=== PATIENT | male | born 1950 | race African-American/Black ===

== ENCOUNTER 2017-01-17 17:03 | Emergency (ER) | payer MEDICARE, MEDICAID ==
[~2017-01-17] VITALS: Ht 177.8 cm; Wt 68.0 kg
[~2017-01-17 17:03] MED LIST: BENADRYL25 MG ORAL; KENALOG 0.1% CR15 GM APPLIC; NKM; NORCO 5-325 TA1 EACH ORAL; PREDNISONE20 MG ORAL; UNOBMED
[2017-01-17 17:19] VITALS: BP 118/73
--- NOTE | 2017-01-17 17:31 | Emergency Room Report ---
History of Present Illness General Chief Complaint: Earache Source: Patient (Angelica Parks) Present Illness HPI 66-year-old male presents to emergency Department complaining of difficulty hearing from the left ear x2 months with inability to hear over the course of the last 2 days. Patient reports that previously he was able to tell them outside of his ear and his ear would pop and he would be up to hear better however he no longer is able to do so. Patient denies pain denies discharge denies fevers or chills patient denies ringing in the ears or headache. he denies use of Q-tips. Denies CP, Palpitations, LOC, AMS, dizziness, Changes in Vision, Sensation, paresthesias, or a sudden severe headache. (Angelica Parks) Allergies: Coded Allergies: No Known Allergies (Unverified , 11/10/13) Patient History Past Medical History: see triage record Past Surgical History: none Pertinent Family History: none Immunizations: UTD Reviewed Nursing Documentation: PMH: Agreed, PSxH: Agreed (Angelica Parks) Nursing Documentation-PMH Past Medical History: No History, Except For Hx Hypertension: Yes (Angelica Parks) Review of Systems All Other Systems: negative except mentioned in HPI (Angelica Parks) Physical Exam Vital Signs Date Time Temp Pulse Resp B/P Pulse Ox O2 Delivery O2 Flow Rate FiO2 01/17/17 17:05 98.1 91 18 122/75 98 Room Air Sp02 EP Interpretation: reviewed, normal General Appearance: no apparent distress, alert, GCS 15, non-toxic Head: normocephalic, atraumatic Eyes: bilateral eye PERRL, bilateral eye normal inspection ENT: hearing grossly normal, normal pharynx, no angioedema, normal voice, uvula midline, moist mucus membranes, other - cerumen impaction of the left ear , Right TM is WNL, there is a scab noted on the right ear canal no evidence of infeciton. Neck: full range of motion, no meningismus, no bony tend, supple/symm/no masses Respiratory: lungs clear, normal breath sounds, speaking full sentences Cardiovascular #1: regular rate, rhythm, no edema Musculoskeletal: back normal, gait/station normal, normal range of motion, non- tender Neurologic: alert, oriented x3, responsive, motor strength/tone normal, sensory intact, speech normal Psychiatric: judgement/insight normal, memory normal, mood/affect normal Skin: normal color, no rash, warm/dry, well hydrated Lymphatic: no adenopathy (Angelica Parks) Medical Decision Making [place] Attestation Dr. gastelum is my supervising Physician whom patient management has been discussed with. (Angelica Parks) Medicare Attestation The history of Donaldo Crawley has been reviewed and management options for him have been examined and discussed by Philip Winslow. I have personally examined and interviewed the patient. (PHILIP WINSLOW M.D.) Diagnostic Impression: Primary Impression: Impacted cerumen of left ear ER Course 66-year-old male presents to emergency Department complaining of difficulty hearing from the left ear x2 months with inability to hear over the course of the last 2 days. Patient reports that previously he was able to tell them outside of his ear and his ear would pop and he would be up to hear better however he no longer is able to do so. Patient denies pain denies discharge denies fevers or chills patient denies ringing in the ears or headache. he denies use of Q-tips Ddx considered but are not limited to OM, OE, mastoiditis, TM perforation, FB Vital signs: are WNL, pt. is afebrile H&PE are most consistent with Impacted cerumen of the left ear canal ORDERS: none required at this time, the diagnosis is clinical -OTOSCOPY: Impacted cerumen in the left ear canal. - Cerumen Removal: verbal consent was obtained by pt. ear curette was used to remove the cerumen from the left ear canal. Pt. tolerated well, there were no complications. re-evaluation pt. is able to hear again, there is no evidence of TM infection or rupture, canal is WNL. ED INTERVENTIONS: None required at this time. DISCHARGE: At this time pt. is stable for d/c to home. With rx for Docusate. Will provide printed patient care instructions, and any necessary prescriptions. Care plan and follow up instructions have been discussed with the patient prior to discharge. (Angelica Parks) Last Vital Signs Date Time Temp Pulse Resp B/P Pulse Ox O2 Delivery O2 Flow Rate FiO2 01/17/17 17:19 97.9 94 17 118/73 98 Room Air (Angelica Parks) Disposition: HOME, SELF-CARE Condition: Stable Scripts Carbamide Peroxide (DEBROX) 15 Ml Drops 10 DROP LEFT EAR TWICE A DAY for 4 Days, #15 ML 0 Refills Prov: Angelica Parks 01/17/17 Patient Instructions: Cerumen Impaction Additional Instructions: Take medications as directed. Follow up with PCP in 3-5 days Return sooner to ED if new symptoms occur, or current symptoms become worse. - Please note that this Emergency Department Report was dictated using [employer] tester helper technology software, occasionally this can lead to erroneous entry secondary to interpretation by the dictation equipment. Angelica Parks Jan 17, 2017 17:31 PHILIP WINSLOW M.D. Jan 28, 2017 13:57
[2017-01-17] MEDS ORDERED: DEBROX15 M1 LEFT EAR (17:32)
[2017-01-17 17:39] VITALS: BP 118/73
== END 2017-01-17 17:40 | disposition home or self-care (01) ==
LOC: EMR 17:39
DX: H61.22 Impacted cerumen, left ear (principal); I10 Essential (primary) hypertension
CPT/HCPCS: 99283

== ENCOUNTER 2017-12-03 19:34 | Emergency (ER) | payer OTHER, MEDICAID ==
[~2017-12-03] VITALS: Ht 177.8 cm; Wt 68.0 kg
[~2017-12-03 19:34] MED LIST changes: +DEBROX15 M1 LEFT EAR
[2017-12-03] MEDS ORDERED: Ketorolac 30mg Inj IM ONE (20:00)
[2017-12-03] MEDS ORDERED: Tetanus/Diptheria/Pertussis Vaccine 0.5ml Syr IM ONE (20:00)
--- NOTE | 2017-12-03 20:04 | Emergency Room Report ---
History of Present Illness General Chief Complaint: Laceration Source: Patient Present Illness HPI 67 yo male patient presents to ER complaining of laceration on right pinky finger 3 hours ago. Patient reports he was working on a chain linked fence when his ring got caught on it and he cut his little finger. Patient reports bleeding; covered finger in towel and packing tape. Patient reports pain and swelling of finger. Patient denies loss of ROM of finger. Denies use of pain medication. Patient denies fever, chest pain, SOB. Allergies: Coded Allergies: No Known Allergies (Unverified , 12/03/17) Patient History Past Medical History: see triage record Reviewed Nursing Documentation: PMH: Agreed, PSxH: Agreed Nursing Documentation-PMH Past Medical History: No History, Except For Hx Hypertension: Yes Review of Systems All Other Systems: negative except mentioned in HPI Physical Exam Vital Signs Date Time Temp Pulse Resp B/P (MAP) Pulse Ox O2 Delivery O2 Flow Rate FiO2 12/03/17 19:39 97.8 90 16 110/66 97 Room Air 97.9 Sp02 EP Interpretation: reviewed, normal General Appearance: well appearing, no apparent distress, alert, GCS 15, non- toxic Head: normocephalic, atraumatic Eyes: bilateral eye normal inspection, bilateral eye PERRL Neck: full range of motion Respiratory: normal inspection, lungs clear, normal breath sounds, no accessory muscle use, no wheezing, speaking full sentences Cardiovascular #1: regular rate, rhythm Cardiovascular #2: 2+ radial (R), 2+ radial (L) Musculoskeletal: back normal, digits/nails normal, gait/station normal, normal range of motion - MCP, PIP, DIP of left pinky finger; able to make a fist and extend finger completely without pain, other - NVI Neurologic: alert, oriented x3, responsive, motor strength/tone normal, normal gait Psychiatric: mood/affect normal Skin: laceration - right hand pinky finger, palmar side 3 cm linear laceration in u-shape at distal DIP into subcutaneous tissue, no exposed tendons, erythema , edema; <0.5cm linear laceration at tip of distal phalanx of left pinky finger on palmar side Procedures Laceration/Wound Repair Laceration/Wound Repair : Consent: Verbal Wound Location: upper extremity - right hand Wound's Depth, Shape: superficial Wound Length (cm): 3 Wound Explored: contaminated Irrigated w/ Saline (ccs): 10 Betadine Prep?: Yes Anesthesia: 1% Lidocaine Volume Anesthetic (ccs): 10 Wound Repaired With: sutures, Steri-strips, Dermabond Suture Size/Type: 5:0 Number of Sutures: 5 Layer Closure?: No Sterile Dressing Applied?: Yes Splint Applied?: Yes Patient Tolerated: Well Complications: None Medical Decision Making [place] Attestation Dr. Winslow is my supervising Physician whom patient management has been discussed with. Diagnostic Impression: Primary Impression: Laceration ER Course Pt presents to ED c/o laceration on right pinky finger. DDX considered but are not limited to laceration, abrasion, contusion, cellulitis, fracture. Ordered lidocaine, Dermabond, xray, Tdap, and pain medications. VITAL SIGNS are WNL, patient is afebrile ED INTERVENTIONS: Xray negative for fracture, tissue laceration visible, no FB noted. Wound was cleaned and irrigated using normal saline. Local block using Lidocaine 1%. Laceration repaired using sutures, steri-strips, and Dermabond. Wound cleaned and covered using sterile dressing. Finger placed in splint to prevent excessive movement and possible tear of stitches. Patient instructed on treatment plan. Patient reports understanding and agreement to treatment plan. Patient was seen and evaluated by Dr. Winslow, agrees to treatment plan. DISCHARGE: Rx provided for Keflex Rx provided for Bactrim Rx provided for Ibuprofen At this time pt is stable for d/c to home. Patient is resting comfortably, in no acute distress, nontoxic appearing. Will provide with patient care instructions and any necessary prescriptions. Patient to take medication as instructed. Care plan and follow-up instructions provided. Work note provided to patient. Patient questions asked and answered. Patient instructed to follow-up with primary care provider in 2 days for wound check and 7-10 days for removal of sutures. Patient instructed to followup with PCP to discuss further treatment plan and ability to go to work, ER precautions given. Patient instructed to return to ER immediately for any new or worsening of symptoms. Other X-Ray Diagnostic Results Other X-Ray Diagnostic Results : X-Ray ordered: Right hand # of Views/Limited Vs Complete: 3 View Indication: Pain EP Interpretation: Yes PA Xray: Interpretation reviewed, and agrees with findings. Interpretation: no dislocation, no fractures, other - tissue swelling, skin laceration, no FB Impression: Other PA Scribe Text Efren Colon PA-C Last Vital Signs Date Time Temp Pulse Resp B/P (MAP) Pulse Ox O2 Delivery O2 Flow Rate FiO2 12/03/17 19:39 97.8 90 16 110/66 97 Room Air 97.9 Disposition: HOME, SELF-CARE Condition: Stable Scripts Trimethoprim/Sulfamethoxazole 160/800* (BACTRIM DS TABLET*) 1 Each Tablet 1 TAB ORAL TWICE A DAY for 7 Days, #14 TAB Prov: Carlos Manuel Colon 12/03/17 Ibuprofen* (MOTRIN*) 600 Mg Tablet 600 MG ORAL Q8H Y for For Pain, #30 TAB 0 Refills Prov: Carlos Manuel Colon 12/03/17 Cephalexin* (KEFLEX*) 500 Mg Capsule 500 MG ORAL EVERY 12 HOURS for 7 Days, #14 CAP 0 Refills Prov: Carlos Manuel Colon 12/03/17 Patient Instructions: Laceration Care, Adult Additional Instructions: Followup with primary care provider in 2 days for wound check and 7-10 days for suture removal. Wear splint, avoid excessive movement of finger that may cause tear in sutures. Rest, ice, compression, elevation. Take medications as directed. Ibuprofen for pain. Patient questions asked and answered. ER precautions given, patient instructed to return to ER immediately for any new or worsening of symptoms. Carlos Manuel Colon Dec 03, 2017 20:04
[2017-12-03] MEDS ORDERED: Lidocaine 1% Plain 30 ml INJ ONE (20:15)
[2017-12-03 20:16] VITALS: BP 118/73
[2017-12-03] MEDS ORDERED: CEPHALEXIN500 MG ORAL (20:23)
[2017-12-03] MEDS ORDERED: IBUPROFEN600 MG ORAL (20:23)
[2017-12-03] MEDS ORDERED: BACTRIM DS TAB1 EAC1 ORAL (21:29)
[2017-12-03 21:36] VITALS: BP 110/66
--- NOTE | 2017-12-04 10:17 | Diagnostic Imaging Report ---
Indication: Pain, laceration Technique: XRAY Hand Complete R Comparison: None Findings/Impression: Soft tissue defect overlying the palmar aspect of the distal fifth phalanx may correspond with given history of laceration. No evidence of acute fracture or dislocation. Anatomic alignment preserved. No radiopaque foreign body seen. This corresponds with the preliminary interpretation of the treating ER physician, as documented in the electronic medical record.
== END 2017-12-03 21:50 | disposition home or self-care (01) ==
LOC: EMR 20:16
DX: S61.216A Laceration without foreign body of right little finger without damage to nail, initial encounter (principal); W45.8XXA Other foreign body or object entering through skin, initial encounter; Y92.89 Other specified places as the place of occurrence of the external cause; Z23 Encounter for immunization; I10 Essential (primary) hypertension
CPT/HCPCS: 12002; 73130; 90471; 90715; 96372; 99284; J1885; J2001

== ENCOUNTER 2018-03-17 17:04 | Emergency (ER) | payer OTHER, MEDICAID ==
[~2018-03-17] VITALS: Ht 177.8 cm; Wt 68.0 kg
[~2018-03-17 17:04] MED LIST changes: +BACTRIM DS TAB1 EAC1 ORAL; +CEPHALEXIN500 MG ORAL; +IBUPROFEN600 MG ORAL
[2018-03-17 17:42] VITALS: BP 155/69
[2018-03-17 18:05] LABS: APPEARANCE,URINE CLEAR; BILIRUBIN, URINE NEGATIVE (NEGATIVE); COLOR,URINE PALE YELLOW; GLUCOSE, URINE (UA) NEGATIVE (NEGATIVE); KETONES,URINE NEGATIVE (NEGATIVE); LEUKOCYTE ESTERASE ,URINE NEGATIVE (NEGATIVE); NITRITE,URINE NEGATIVE (NEGATIVE); PH,URINE 6.5 (4.5-8.0); PROTEIN,URINE NEGATIVE (NEGATIVE); UROBILINOGEN,URINE NORMAL MG/DL (0.0-1.0)
[2018-03-17 18:13] LABS: BASOPHILS % (AUTO) 1.8 % (0.0-2.0); EOSINOPHILS % (AUTO) 0.8 % (0.0-3.0); HEMATOCRIT 38.5 % (42.0-52.0); HEMOGLOBIN 13.1 G/DL (14.2-18.0); LYMPHOCYTES % (AUTO) 20.5 % (20.0-45.0); MEAN CORPUSCULAR VOLUME 95 FL (80-99); MONOCYTES % (AUTO) 8.4 % (1.0-10.0); NEUTROPHILS % (AUTO) 68.6 % (45.0-75.0); PLATELET COUNT 231 K/UL (150-450); RED BLOOD COUNT 4.05 M/UL (4.70-6.10); RED CELL DISTRIBUTION WIDTH 11.4 % (11.6-14.8); WHITE BLOOD COUNT 6.4 K/UL (4.8-10.8)
[2018-03-17 18:17] LABS: INR 0.9 (0.9-1.1)
[2018-03-17 18:25] LABS: ANION GAP 11 mmol/L (5-15); BLOOD UREA NITROGEN 10 mg/dL (7-18); CALCIUM 8.8 MG/DL (8.5-10.1); CARBON DIOXIDE 26 MMOL/L (21-32); CHLORIDE 101 MMOL/L (98-107); CREATININE 0.8 MG/DL (0.55-1.30); POTASSIUM 3.6 MMOL/L (3.5-5.1); SODIUM 138 MMOL/L (136-145)
[2018-03-17 18:31] LABS: ALANINE AMINOTRANSFERASE 43 U/L (12-78); ALBUMIN 3.8 G/DL (3.4-5.0); ALBUMIN/GLOBULIN RATIO 0.9 (1.0-2.7); ALKALINE PHOSPHATASE 45 U/L (46-116); ASPARTATE AMINO TRANSFERASE 67 U/L (15-37); BILIRUBIN,TOTAL 0.3 MG/DL (0.2-1.0); CREATINE KINASE 1342 U/L (26-308)
[2018-03-17 19:10] VITALS: BP 141/70
--- NOTE | 2018-03-17 19:46 | Emergency Room Report ---
History of Present Illness General Chief Complaint: Pain Source: Patient, Medical Record Present Illness HPI The patient states he has had some right shoulder pain and tingling sensation in his right arm. He states he was discussing this with his friend and his friend was concerned that he could be having a stroke. He denies weakness. He states the symptoms have been ongoing for about a month. He denies headache. He denies trauma. He denies blurry vision. He denies fever or chills. He denies neck pain. He has no other complaints. Allergies: Coded Allergies: No Known Allergies (Unverified , 12/03/17) Patient History Past Medical History: see triage record, CVA/TIA Social History: Reports: smoking, alcohol use, drug use Reviewed Nursing Documentation: PMH: Agreed; PSxH: Agreed Nursing Documentation-PMH Hx Hypertension: Yes Review of Systems All Other Systems: negative except mentioned in HPI Physical Exam Vital Signs Date Time Temp Pulse Resp B/P (MAP) Pulse Ox O2 Delivery O2 Flow Rate FiO2 03/17/18 17:20 98.6 86 18 155/69 100 Room Air 98.6 Sp02 EP Interpretation: reviewed, normal General Appearance: no apparent distress, alert, GCS 15, non-toxic Head: normocephalic, atraumatic Eyes: bilateral eye normal inspection, bilateral eye PERRL ENT: hearing grossly normal, normal pharynx, no angioedema, normal voice Neck: full range of motion, supple/symm/no masses Respiratory: chest non-tender, lungs clear, normal breath sounds, no respiratory distress, no retraction, no accessory muscle use, speaking full sentences Cardiovascular #1: regular rate, rhythm, no edema Gastrointestinal: normal bowel sounds, non tender, soft, non-distended, no guarding, no rebound Rectal: deferred Musculoskeletal: back normal, gait/station normal, normal range of motion, non- tender Neurologic: alert, oriented x3, responsive, motor strength/tone normal, sensory intact, speech normal Psychiatric: judgement/insight normal, memory normal, mood/affect normal, no suicidal/homicidal ideation Skin: normal color, no rash, warm/dry, well hydrated Medical Decision Making Diagnostic Impression: Primary Impression: Cervical radiculopathy Additional Impression: Arm paresthesia, right ER Course This patient presents with paresthesias in his right arm. Likely this is a cervical radiculopathy. I did obtain a CT of the head which is unremarkable. Further, the patient's history and physical exam is not consistent with a CVA. Patient's laboratory workup is noncontributory. The patient is using illicit drugs to include cocaine. He is educated on the dangers of cocaine use. At this time, I did not identify an emergency medical condition. The patient is instructed to follow-up closely with his primary care physician. The patient is given close return precautions and follow-up instructions. Laboratory Tests Test 03/17/18 17:52 White Blood Count 6.4 K/UL (4.8-10.8) Red Blood Count 4.05 M/UL (4.70-6.10) L Hemoglobin 13.1 G/DL (14.2-18.0) L Hematocrit 38.5 % (42.0-52.0) L Mean Corpuscular Volume 95 FL (80-99) Mean Corpuscular Hemoglobin 32.4 PG (27.0-31.0) H Mean Corpuscular Hemoglobin Concent 34.1 G/DL (32.0-36.0) Red Cell Distribution Width 11.4 % (11.6-14.8) L Platelet Count 231 K/UL (150-450) Mean Platelet Volume 7.0 FL (6.5-10.1) Neutrophils (%) (Auto) 68.6 % (45.0-75.0) Lymphocytes (%) (Auto) 20.5 % (20.0-45.0) Monocytes (%) (Auto) 8.4 % (1.0-10.0) Eosinophils (%) (Auto) 0.8 % (0.0-3.0) Basophils (%) (Auto) 1.8 % (0.0-2.0) Prothrombin Time 9.6 SEC (9.30-11.50) Prothrombin Time INR 0.9 (0.9-1.1) PTT 29 SEC (23-33) Urine Color Pale yellow Urine Appearance Clear Urine pH 6.5 (4.5-8.0) Urine Specific [place] 1.005 (1.005-1.035) Urine Protein Negative (NEGATIVE) Urine Glucose (UA) Negative (NEGATIVE) Urine Ketones Negative (NEGATIVE) Urine Occult Blood Negative (NEGATIVE) Urine Nitrite Negative (NEGATIVE) Urine Bilirubin Negative (NEGATIVE) Urine Urobilinogen Normal MG/DL (0.0-1.0) Urine Leukocyte Esterase Negative (NEGATIVE) Sodium Level 138 MMOL/L (136-145) Potassium Level 3.6 MMOL/L (3.5-5.1) Chloride Level 101 MMOL/L (98-107) Carbon Dioxide Level 26 MMOL/L (21-32) Anion Gap 11 mmol/L (5-15) Blood Urea Nitrogen 10 mg/dL (7-18) Creatinine 0.8 MG/DL (0.55-1.30) Estimate Glomerular Filtration Rate > 60 mL/min (>60) Glucose Level 73 MG/DL (74-106) L Calcium Level 8.8 MG/DL (8.5-10.1) Total Bilirubin 0.3 MG/DL (0.2-1.0) Aspartate Amino Transferase (AST) 67 U/L (15-37) H Alanine Aminotransferase (ALT) 43 U/L (12-78) Alkaline Phosphatase 45 U/L (46-116) L Total Creatine Kinase 1342 U/L (26-308) H Troponin I 0.004 ng/mL (0.000-0.056) Total Protein 8.1 G/DL (6.4-8.2) Albumin 3.8 G/DL (3.4-5.0) Globulin 4.3 g/dL Albumin/Globulin Ratio 0.9 (1.0-2.7) L Urine Opiates Screen Negative (NEGATIVE) Urine Barbiturates Screen Negative (NEGATIVE) Phencyclidine (PCP) Screen Negative (NEGATIVE) Urine Amphetamines Screen Negative (NEGATIVE) Urine Benzodiazepines Screen Negative (NEGATIVE) Urine Cocaine Screen Positive (NEGATIVE) H Urine Marijuana (THC) Screen Negative (NEGATIVE) EKG Diagnostic Results Rate: normal Rhythm: NSR ST Segments: no acute changes Other Impression Qwave lead V1, V2. Rhythm Strip Diag. Results EP Interpretation: yes Rate: 70's Rhythm: NSR, no PVC's, no ectopy CT/MRI/US Diagnostic Results CT/MRI/US Diagnostic Results : Imaging Test Ordered: CT head Impression No acute findings. See official report. Last Vital Signs Date Time Temp Pulse Resp B/P (MAP) Pulse Ox O2 Delivery O2 Flow Rate FiO2 03/17/18 17:42 98.6 82 18 155/69 100 Room Air 98.6 Disposition: HOME, SELF-CARE Condition: Stable Referrals: NON PHYSICIAN (PCP) LUCINDA CUMMINGS D.O. Mar 17, 2018 19:46
[2018-03-17 20:00] VITALS: BP 138/68
--- NOTE | 2018-03-18 09:46 | Diagnostic Imaging Report ---
Indications: Pain Technique: Spiral acquisitions obtained through the brain. Angled axial and coronal 5 x 5 mm slices were reconstructed. Total dose length product 1453.5 mGycm. CTDI vol(s) 70.38 mGy. Dose reduction achieved using automated exposure control Comparison: 11/10/2013 Findings: There is mild age-related enlargement of the ventricles and extra-axial CSF spaces. There is minimal periventricular deep white matter low-attenuation. No acute intracranial hemorrhage or edema, mass effect, nor midline shift. The calvarium is intact. Visualized orbits and sinuses are unremarkable. Impression: Mild age-related volume loss. Negative for acute intracranial bleed or mass effect This agrees with the preliminary interpretation provided overnight by [facility]erad[facility] service. The CT scanner at [facility] is accredited by the [employer] and the scans are performed using protocols designed to limit radiation exposure to as low as reasonably achievable to attain images of sufficient resolution adequate for diagnostic evaluation.
--- NOTE | 2018-03-18 13:52 | Cardiology Report ---
APPROVED REPORT EKG Measurement Heart [id number] Normal sinus rhythm Septal infarct, age undetermined Abnormal ECG
== END 2018-03-17 20:00 | disposition home or self-care (01) ==
LOC: EMR 18:41
DX: M54.12 Radiculopathy, cervical region (principal); R20.2 Paresthesia of skin; I10 Essential (primary) hypertension; F17.200 Nicotine dependence, unspecified, uncomplicated
CPT/HCPCS: 36415; 70450; 80053; 80307; 81003; 82550; 84484; 85025; 85610; 85730; 93005; 99284